=== PATIENT | male | born 1985 | race Caucasian/White ===

== ENCOUNTER 2017-02-01 18:47 | Emergency (ER) | payer OTHER ==
[~2017-02-01] VITALS: Ht 180.3 cm; Wt 87.2 kg
[2017-02-01 18:51] VITALS: BP 109/91
[2017-02-01] MEDS ORDERED: NORCO 5/3251 TABLET PO (20:05)
== END 2017-02-01 20:26 | disposition home or self-care (01) ==
LOC: EME 18:47
PROC: 2W3DX1Z Immobilization of Left Lower Arm using Splint (ICD-10-PCS; principal; 2017-02-01)
DX: S52.502A Unspecified fracture of the lower end of left radius, initial encounter for closed fracture (principal); W11.XXXA Fall on and from ladder, initial encounter
CPT/HCPCS: 73110; 99281; 99283